=== PATIENT | female | born 1950 | race Caucasian/White ===

== ENCOUNTER 2017-11-12 10:19 | Emergency (ER) | payer BC, OTHER ==
[2017-11-12 10:37] VITALS: BP 140/70; PULSE 79; TEMP 98.3; BMI 28.0
--- NOTE | 2017-11-12 12:10 | PDOC ---
History of Present Illness - General Chief Complaint: Abscess Boil Stated Complaint: ABSCESS BOIL Time Seen by Provider: 11/12/17 12:07 History Source: Patient Exam Limitations: No Limitations - History of Present Illness Initial Comments: 11/12/17 12:10 Best Contact: PCP: Dr. Del Valle/Benitez Pmhx: Arthritis Pshx: 04/03/2017 left sided mid back lipoma removal Allergies: NKDA 67-year-old female who is right hand dominant presents to the ER complaining of an oval painless nodules to the dorsal aspect of her left hand. Patient denies pain, extremity numbness or tingling sensation. Patient denies recent injury. Past History - Past Medical History Allergies/Adverse Reactions: Allergies Allergy/AdvReac Type Severity Reaction Status Date / Time No Known Allergies Allergy Verified 11/12/17 10:34 Home Medications: Ambulatory Orders NK [No Known Home Medication] 11/12/17 COPD: No Other medical history: DENIES. - Suicide/Smoking/Psychosocial Hx Smoking History: Never smoked Review of Systems - Review of Systems Able to Perform ROS?: Yes Comments:: 11/12/17 12:12 CONSTITUTIONAL: Absent: fever, chills, diaphoresis, generalized weakness, malaise, loss of appetite MUSCULOSKELETAL: + Painless/oval cyst to the left dorsum Absent: myalgia, arthralgia, joint swelling SKIN: Absent: rash, itching, pallor HEMATOLOGIC/IMMUNOLOGIC: Absent: easy bleeding, easy bruising, lymphadenopathy, frequent infections ENDOCRINE: Absent: unexplained weight gain, unexplained weight loss, heat intolerance, cold intolerance Is the patient limited Romanian proficient: No *Physical Exam - Vital Signs Last Vital Signs Temp Pulse Resp BP Pulse Ox 98.3 F 79 19 140/70 97 11/12/17 10:34 11/12/17 10:34 11/12/17 10:34 11/12/17 10:34 11/12/17 10:34 - Physical Exam Comments: 11/12/17 12:13 GENERAL: Well developed, well nourished. Awake and alert. No acute distress. MUSCULOSKELETAL Normal range of motion at all joints. No bony deformities or tenderness. No CVA tenderness. EXTREMITIES: No cyanosis. No clubbing. No edema. No calf tenderness. SKIN: Warm and dry. Normal capillary refill. No rashes. No jaundice. Left dorsum hand/base of third metacarpal Painless/2 cm oval nodule Moderate Sedation - Procedure Monitoring Vital Signs: Vital Signs Temp Pulse Resp BP Pulse Ox 98.3 F 79 19 140/70 97 11/12/17 10:34 11/12/17 10:34 11/12/17 10:34 11/12/17 10:34 11/12/17 10:34 *DC/Admit/Observation/Transfer Diagnosis at time of Disposition: Ganglion cyst of dorsum of left wrist - Discharge Dispostion Disposition: HOME Condition at time of disposition: Stable Decision to Admit order: No - Referrals Referrals: Agustín Sterling MD [Staff Physician] - - Patient Instructions Printed Discharge Instructions: Ganglion Cyst Additional Instructions: Follow-up with the orthopedic surgeon listed on your discharge Return back to the ER for any concerns - Post Discharge Activity
== END 2017-11-12 12:13 | disposition home or self-care (01) ==
LOC: JERFT 10:19
DX: M67.432 Ganglion, left wrist (principal)
CPT/HCPCS: 99281-25